=== PATIENT | female | born 1935 | race Caucasian/White ===

== ENCOUNTER 2018-11-16 15:18 | Observation (INO) | payer MEDICARE, MEDICAID ==
--- NOTE | 2018-11-16 16:47 | RAD ---
RADIOGRAPH CHEST 1 VIEW: DATE: 11/16/2018 HISTORY: 83-year-old female with dyspnea FINDINGS: The thoracic aorta is tortuous and ectatic. There is no evidence of airspace density, pulmonary edema , or pneumothorax. The lateral costophrenic angles are not effaced. No cardiomegaly. 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 IMPRESSION: 1) No acute cardiopulmonary findings. 2) ectasia of thoracic aorta. 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
[2018-11-16] MEDS ORDERED: Nitroglycerin 2% Ointment 1 INCH/1 GM Packet ONE (17:31)
[2018-11-16] MEDS ORDERED: Potassium Chloride 20 MEQ TAB PO SCH (19:45)
--- NOTE | 2018-11-16 19:53 | PDOC.FPRHP ---
- History of Present Illness Chief Complaint: SOB History of Present Illness: 83yo F who presents as a transfer from [place] from abnormal Troponins, Q waves in EKG, and elevated blood pressure. She was living at a long term in [place] several months ago. Her eldest daughter decided to take her home to live with her. The patient says that her daughter has been watching her every move and not allowing her to do things she enjoyed. She decided that she could not take it anymore and decided to run off down the street and an ambulance came and picked her up and took her to a hospital in [place] for shortness of breath. She says she has no chest pain. She does not recall what occured at the hospital. ED Course: In [place] ED, she was noted to have 2 indeterminate range troponins and pt complained of SOB. She was also noted to be hypokalemic. Pt was given 40 meq of K, ASA, 1 inch of nitro paste and transferred to this facility. By the time of arrival here, SOB/CP had resolved and repeat troponin was negative - Allergies/Adverse Reactions Allergies Allergy/AdvReac Type Severity Reaction Status Date / Time Penicillins Allergy Unknown Verified 11/16/18 21:31 - Home Medications Medication Instructions Recorded Confirmed Type No Known 11/16/18 11/16/18 History Comments: N/A she does not think she is taking any medications, however there were multiple meds filled within the last month. Will contact [facility] for more information - History PMHx: Depression, Hx of PNA, HTN PSHx: Hysterectomy, Appendectomy FHx: HTN-Father, Ovarian/Cervical? Cancer- Mother Social: Has 4 children (1 passed), lives with her eldest daughter. - Review of Systems General: reports: weight/appetite/sleep changes (decrease appetite and weight loss) Eyes: denies: vision changes ENT: denies: nasal congestion Respiratory: reports: shortness of breath. denies: cough Cardiovascular: denies: chest pain Gastrointestinal: reports: diarrhea. denies: nausea, vomiting, constipation, abdominal pain Genitourinary: denies: dysuria Skin: denies: rashes Musculoskeletal: denies: pain Neurological: denies: weakness Psychological: reports: depression - Vital signs BP: 200/111 HR: 86 RR: 13 Pox: 99% on RA Wt: 73 kg - Physical Exam Constitutional: NAD, awake, alert and oriented (AAOX2, does not know where she is.) HEENT: normocephalic and atraumatic, PERRLA, EOMI, TM's clear and intact, grossly normal hearing, MMM, oropharynx clear Chest: no-tender to palpation Heart: RRR, normal S1/S2, no murmurs/rubs/gallops Lungs: CTAB, good air movement Abdomen: soft, non-tender, bowel sounds present Musculoskeletal: normal structure, normal tone Neurological: no focal deficit, CN II-XII intact, normal sensation Skin: no rash/lesions Heme/Lymphatic: no unusual bruising or bleeding Psychiatric: other -Psychiatric: Pt has problems recalling. She is depressed and was crying upon examination. FMR H&P: Results - Labs Result Diagrams: 11/17/18 04:47 11/17/18 04:47 Lab results: Laboratory Tests 11/16/18 11/16/18 11/16/18 10:03 10:03 10:03 WBC 5.4 Hgb 14.0 Plt Count 177 Sodium 143 Potassium 3.0 L Chloride 106 Carbon Dioxide 25 Anion Gap 15 BUN 9 L Creatinine 0.87 Estimated GFR (MDRD) 62 Glucose 113 H Calcium 9.5 Magnesium Total Bilirubin 0.5 AST 16 ALT 8 Alkaline Phosphatase 105 CK-MB (CK-2) 1.1 Troponin I 0.031 H Urine Color Urine Clarity Urine pH Ur Specific [place] Urine Protein Urine Glucose (UA) Urine Ketones Urine Blood Urine Nitrite Urine Bilirubin Urine Urobilinogen Ur Leukocyte Esterase Urine RBC Urine WBC Ur Squamous Epith Cells Urine Bacteria 11/16/18 11/16/18 11/16/18 10:24 12:48 20:00 WBC Hgb Plt Count Sodium Potassium Chloride Carbon Dioxide Anion Gap BUN Creatinine Estimated GFR (MDRD) Glucose Calcium Magnesium 1.6 Total Bilirubin AST ALT Alkaline Phosphatase CK-MB (CK-2) Troponin I 0.037 H Urine Color Yellow Urine Clarity Clear Urine pH 7.0 Ur Specific [place] 1.015 Urine Protein Negative Urine Glucose (UA) Negative Urine Ketones Negative Urine Blood Negative Urine Nitrite Negative Urine Bilirubin Negative Urine Urobilinogen 0.2 Ur Leukocyte Esterase Small H Urine RBC 0-3 Urine WBC 7-10 A Ur Squamous Epith Cells 0-3 Urine Bacteria Rare-Few A Additional comment: Labs from [place] ED - EKG Interpretation EKG: NSR rate 81, multiple Q waves. No ST elevation or T wave inversion - Radiology Interpretation Chest x-ray Status: image reviewed by me, report reviewed by me Additional comment: No acute process FMR H&P: A/P - Problem List (1) Chest pain, rule out acute myocardial infarction Current Visit: Yes Status: Acute Priority: High Code(s): R07.9 - CHEST PAIN, UNSPECIFIED Assessment and Plan: 2 Elevated Troponins in [place], Last Troponin here was normal. EKG- shows Q waves Elevated BP- started Losartan and Hydralazine Admit to tele obs, plan for stress in am. Unclear cardiac hx due to dementia, will attempt to contact family for better history (2) Hypokalemia Current Visit: Yes Status: Acute Priority: Low Code(s): E87.6 - HYPOKALEMIA Assessment and Plan: Replacing with 40 meq PO, received 40 meq in [place] Checking Magnesium, replace if indicated Will recheck in the am (3) UTI (urinary tract infection) Current Visit: Yes Status: Acute Priority: Low Qualifiers: Urinary tract infection type: site unspecified Hematuria presence: without hematuria Qualified Code(s): N39.0 - Urinary tract infection, site not specified Assessment and Plan: UA shows leukocyte esteras, 7-10 WBC, and few Bacteria. She recieved on dose of Rocephin in [place]. Will start Macrobid in am. Cultures pending (4) Dementia Current Visit: Yes Status: Acute Code(s): F03.90 - UNSPECIFIED DEMENTIA WITHOUT BEHAVIORAL DISTURBANCE Assessment and Plan: Unclear history. Contact family as above and restart any home meds. - Plan Will keep her for observation for rule out of ACS. Need to contact next of kin due to inability to consent. Disposition/LOS: Current condition is good, would expect discharge in 24-48 hours pending results of ACS work up. FMR H&P: Upper Level - Pertinent history 83 yo F here from [place] ED. Per patient she recently started living at home with her daughter. This has been a source of great stress and today she had enough and started walking down the street yelling for help. She was brought via EMS to the ED where she was noted to have an indeterminate trop with what appeared to be q waves in multiple leads. She was given nitro and asa and transferred to this facility. Here she states that while in the previous ED she was feeling SOB, but denies CP or diaphoresis. She denies any medical hx with the exception of a possible previous dx of HTN, hwoever she is taking no meds currently. See digital marketing intern note for full ROS General: denies fever or chills CV denies CP or palpitations Resp complains of SOB, denies cough or wheezing GI denies n/v/d Neuro denies numbness or weakness - Pertinent findings See digital marketing intern portion for labs, vitals, full PE PE General no acute distress A&O x2 HEENT NCAT CV RRR, no murmur, no edema Resp CTA b/l GI non tender, no distension Neuro CN II-XII intact, normal sensation, normal strength - Plan Date/Time: 11/16/181945 I, Srikanth Yee, , have evaluated this patient and agree with findings/plan as outlined by digital marketing intern resident. Pertinent changes/additions are listed here. 1. Atypical chest pain - trops currently down trending. Pt does appear to be somewhat demented and previous Rx's show lasix, statin, and ACEI. Unclear as to what her actual hx is. Plan to admit for obs with stress in AM. - Will need to contact family for more information regarding pts hx. 2. Dementia - unclear what her baseline function is. Plan to discuss with family as above. Will restart home meds if they exist. 3. Hypokalemia - replace and recheck in am - check Mg and replace if indicated. 4. UTI - [facility]. Given 1g Rocephin - start PO abx tomorrow, cx pending Addendum - Attending - Attending Attestation Date/Time: 11/17/18723 I personally evaluated the patient and discussed the management with Dr. Yee and Roselia at time of admission last night. I agree with the History, Examination, Assessment and Plan documented above with any addition or exceptions noted below.
[2018-11-16] MEDS ORDERED: Nitroglycerin 0.4 MG TAB 1 EACH ONE (20:21)
[2018-11-16 20:34] LABS: Troponin I Less than 0.010 ng/mL (< 0.028)
[2018-11-16] MEDS ORDERED: hydrALAZINE 20 MG/ML VIAL SLOW IVP PRN (21:27)
[2018-11-16] MEDS ORDERED: Calcium Carbonate 500 MG ChewTAB PO PRN (21:27)
[2018-11-16] MEDS ORDERED: Senokot S 8.6-50 MG TAB PO PRN (21:27)
[2018-11-16] MEDS ORDERED: Acetaminophen 325 MG TAB PO PRN (21:27)
[2018-11-16] MEDS ORDERED: Ondansetron ODT 4 MG TAB PO PRN (21:27)
[2018-11-16] MEDS ORDERED: Nitroglycerin 0.4 MG TAB (25 Tab Bottle) PO PRN (21:27)
[2018-11-16 21:39] VITALS: BMI 27.7
[2018-11-16] MEDS ORDERED: Magnesium Sulfate 2 GM in Sodium Chloride 0.9% 100 ML IVPB SCH (22:00)
[2018-11-16] MEDS ORDERED: Magnesium 2 GM/50 ML 2 GM in Premix Bag 1 BAG IVPB SCH (22:15)
[2018-11-17 05:25] LABS: Anion Gap 11 mmol/L (10-20); BUN (Urea Nitrogen) 7 mg/dL (9.8-20.1); Calc. Creatinine Clearance 62 mL/min (70-130); Calcium 9.4 mg/dL (7.8-10.44); Carbon Dioxide 24 mmol/L (23-31); Cardiac Risk 3.7 (Less than 4.5); Chloride 108 mmol/L (98-107); Cholesterol 214 mg/dl (< 200 Desired); Estimated GFR-MDRD 70; Glucose 103 mg/dL (83-110); HDL Cholesterol 58 mg/dL (>60 Neg Risk); LDL Cholesterol, Calculated 137 mg/dL; Magnesium 2.4 mg/dL (1.6-2.6); Potassium 4.3 mmol/L (3.5-5.1); Sodium 139 mmol/L (136-145); Triglycerides 97 mg/dL (Less than 150)
[2018-11-17 05:33] LABS: Band 4 % (5-11); Eosinophils 3 % (0-10); Hemoglobin 13.1 g/dL (12.0-16.0); Lymphocytes 25 % (21-51); MDiff Complete? YES; Mean Corpuscular HGB CONC 32.2 g/dL (32.0-36.0); Mean Corpuscular Hemoglobin 28.8 pg (27.0-31.0); Mean Corpuscular Volume 89.5 fL (78.0-98.0); Mean Platelet Volume 8.9 fL (7.4-10.4); Monocytes 8 % (0-10); Neutrophil 60 % (42-75); Platelet Count 147 thou/uL (130-400); Red Blood Cell (RBC) Count 4.56 mill/uL (4.20-5.40); White Blood Cell (WBC) Count 4.9 thou/uL (4.8-10.8)
--- NOTE | 2018-11-17 07:07 | PDOC.FM ---
- Subjective Subjective: pt resting comfortably in bed, denies further sob. no chest pain - Objective Vital Signs & Weight: Vital Signs (12 hours) Temp Pulse Resp BP Pulse Ox 11/17/18 02:32 97.6 F 84 14 176/77 H 96 11/16/18 22:02 97 11/16/18 20:46 97.9 F 86 22 H 132/85 97 Weight Weight 73.21 kg I&O: 11/15/18 11/16/18 11/17/18 06:59 06:59 06:59 Intake Total 120 Balance 120 Result Diagrams: 11/17/18 04:47 11/17/18 04:47 Phys Exam - Physical Examination Constitutional: NAD HEENT: moist MMs Neck: no JVD Respiratory: clear to auscultation bilateral Cardiovascular: RRR, no significant murmur Gastrointestinal: soft Musculoskeletal: pulses present Neurological: moves all 4 limbs Lymphatic: no nodes Psychiatric: normal affect Skin: no rash Dx/Plan (1) Chest pain, rule out acute myocardial infarction Code(s): R07.9 - CHEST PAIN, UNSPECIFIED Status: Acute (2) Dementia Code(s): F03.90 - UNSPECIFIED DEMENTIA WITHOUT BEHAVIORAL DISTURBANCE Status: Acute (3) Hypokalemia Code(s): E87.6 - HYPOKALEMIA Status: Acute (4) UTI (urinary tract infection) Status: Acute Qualifiers: Urinary tract infection type: site unspecified Hematuria presence: without hematuria Qualified Code(s): N39.0 - Urinary tract infection, site not specified - Plan Plan: Atypical chest pain - EKG shows Q waves, trops currently down trending. - previous Rx's show lasix, statin, and ACEI. Unclear as to what her actual hx is. - NM stress today Dementia - Kate ZARAGOZA reports significant psychiatric hx, believes she had a psychotic break and ran away - Will restart home meds if they exist. Hypokalemia - replace as needed, monitor UTI - identified [facility], sp 1g rocephin - continue, cx pending code: full dispo: stress today, [facility] consult Addendum - Attending - Attending Attestation Date/Time: 11/17/18 1024 I personally evaluated the patient and discussed the management with Dr. Martinez. I agree with the History, Examination, Assessment and Plan documented above with any addition or exceptions noted below. She has poor short-term memory consistent with dementia. Will need radio time salesperson care post discharge.
[2018-11-17] MEDS: Nitrofurantoin Monohyd/M-Cryst 100 MG CAP PO SCH ×2 (07:38→19:56)
[2018-11-17] MEDS ORDERED: Prevnar 13-Val Conj/PF 0.5 ML SYRINGE IM ONE (09:00)
[2018-11-17] MEDS ORDERED: Losartan 25 MG TAB PO SCH (09:00)
[2018-11-17] MEDS ORDERED: Enoxaparin Sodium 40 MG/0.4 ML SYRINGE SC SCH (09:00)
[2018-11-17 15:48] VITALS: BP 178/74; TEMP 98.1
[2018-11-17] MEDS ORDERED: Lorazepam 2 MG/ML VIAL SLOW IVP PRN (19:43)
[2018-11-17] MEDS ORDERED: Haloperidol Lactate 5 MG/ML VIAL SLOW IVP PRN (19:44)
[2018-11-17] MEDS ORDERED: Haloperidol Lactate 5 MG/ML VIAL IM PRN (19:45)
[2018-11-17] MEDS ORDERED: Lorazepam 1 MG TAB PO PRN (19:52)
--- NOTE | 2018-11-18 12:51 | DIS ---
DATE OF ADMISSION: 11/16/2018 DATE OF DISCHARGE: 11/17/2018 ADMITTING ATTENDING: Dr. Poncho Monroy. DISCHARGE ATTENDING: Dr. Poncho Monroy. RESIDENT: Jung Martinez DO. PROCEDURES: None. IMAGING: Chest x-ray is not significant for any cardiopulmonary abnormalities. MEDICATIONS: Discharged home on no medications. PRIMARY DIAGNOSIS: Acute psychotic delirium. SECONDARY DIAGNOSES: 1. Atypical chest pain. 2. Dementia. 3. Hypokalemia. 4. Urinary tract infection. HISTORY OF PRESENT ILLNESS/HOSPITAL COURSE: Ms. Eason is an 83-year-old female who presents as transfer from [place] for abnormal troponins and Q-waves on EKG, showed an elevated blood pressure. Nursing staff reported by family members and brought to live at home with her family member. EMS had found her wandering streets and brought her to the ER. She said that she was short of breath at that time and does not have any medical history that she can remember. The patient overall is a very poor historian and cannot provide very much information regarding her medical diagnosis or medication she is on. The patient to be evaluated for a cardiac workup. Troponins were negative. Vital signs remained stable. EKG did reveal Q-wave, but no concern for acute IL at that time. It was recommended that she have a stress test, which she declined. More debilitating was probably the patient's acute psychotic delirium. Initially, she was very tearful on exam. Later in the afternoon, she was threatening to kill everyone in the hospital. [facility] recommended inpatient psychiatry hospital placement. DISCHARGE INFORMATION: Location, inpatient facility. ACTIVITY: As tolerated. DIET: Regular. FOLLOWUP: Follow up with admitting team in outside facility. Job ID: [id number] MTDD
--- NOTE | 2018-11-22 12:43 | EKG ---
Test Reason : ELEVATEDTROPI Blood Pressure : / mmHG Vent. Rate : 085 BPM Atrial Rate : 085 BPM P-R Int : 220 ms QRS Dur : 066 ms QT Int : 382 ms P-R-T Axes : 057 -06 039 degrees QTc Int : 454 ms Sinus rhythm with 1st degree A-V block Inferior infarct , age undetermined Anteroseptal infarct , age undetermined Abnormal ECG Q wave III, aVF Q wave V1-V3 Confirmed by GRISELDA LAURENT DO ([id number]), conveyor weigher operator DEENA GRAHAM ([id number]) on 11/22/2018 12:43:06 PM Referred By: MEHRAN Confirmed By:GRISELDA LAURENT DO
== END 2018-11-17 21:27 ==
LOC: ERS 15:18 → 2SW 17:21
PROVIDERS: ADMIT Family Medicine; ATTEND Family Medicine
DX: F23 Brief psychotic disorder (principal); F05 Delirium due to known physiological condition; R07.89 Other chest pain; F03.90 Unspecified dementia, unspecified severity, without behavioral disturbance, psychotic disturbance, mood disturbance, and anxiety; N39.0 Urinary tract infection, site not specified; E87.6 Hypokalemia; F32.9 Major depressive disorder, single episode, unspecified; I10 Essential (primary) hypertension; Z91.5 Personal history of self-harm; Z88.0 Allergy status to penicillin
CPT/HCPCS: 71045; 80048; 80061; 80307; 83735 ×2; 84484; 85025; 93005; 94760; 96365; 96372; 96374; 99285; G0378 ×2; 36415; J1650; J3475